=== PATIENT | male | born 1935 | race Caucasian/White ===

== ENCOUNTER 2022-04-22 15:31 | Inpatient (IN) | payer OTHER, MEDICARE ==
--- OUTSIDE RECORDS SUMMARY | 2022-04-22 15:33 | XMS REPORT | Continuity of Care Document ---
:1935 Author Organization [facility] Address [address] [place] [address] Dr. [address] [place] [address] Care Team Providers Name Role Phone Hal-Marybeth_Bella_RUSTAM Attending Clinician Unavailable Hal-Percy_RUSTAM Admitting Clinician Unavailable Payers Payer Name Policy Type Policy Number Effective Date Expiration Date S angiece [employer] [place] - [id number] 2019 [employer] 00:00:00 (MEDICARE REPLACEMENT/ADVANT AGE - HMO) Problems Condition Condition Condition Status Onset Resolution Last Treating Co mments Source Name Details Category Date Date Treatment Clinician Date Hyperchole Hyperchole Problem Active 0 [facility] sterolemia sterolemia 6-24 Fa ayush 00:00: Practic 00 e Gout Gout Problem Active 2019-0 [place] 6-24 Family 00:00: Practic 00 e Major Major Problem Active 2019-0 [facility] depressive Depressive 6-24 Fa ayush disorder Disorder 00:00: Practi c 00 e Essential Essential Problem Active 0 Dung jl hypertensi Hypertensi 6-24 Fa ayush on on 00:00: Practic 00 e Benign Benign Problem Active 2019-0 [facility] prostatic Prostatic 6-24 Fami ly hyperplasi Hyperplasi 00:00: Pr actic a a 00 e Allergies, Adverse Reactions, Alerts Allergy Allergy Status Severity Reaction(s) Onset Inactive Treating Comm ents Source Name Type Date Date Clinician PENICILL Allergy Active Moderate Rash [place] ge INS to to severe Family substanc Practic e e Social History Smoking Status Start Date Stop Date Source Never Smoker [facility] Medications Ordered Filled Start Stop Current Ordering Indication Dosage Frequency Signature Comments Components Source Medication Medication Date Date Medication? Clinician (SIG) Name Name allopurinol allopurinol No 1 Q1D allopurino [place] 300 mg 300 mg l 300 mg Family tablet Take tablet Take tablet Practic 1 tablet 1 tablet Take 1 e every day every day tablet by oral by oral every day route. route. by oral route. amlodipine amlodipine No 1 Q1D amlodipine [place] 5 mg tablet 5 mg tablet 5 mg F amily Take 1 Take 1 tablet Practic tablet tablet Take 1 e every day every day tablet by oral by oral every day route. route. by oral route. finasteride finasteride No 1 Q1D finasterid [facility] 5 mg tablet 5 mg tablet e 5 mg Family Take 1 Take 1 tablet Practic tablet tablet Take 1 e every day every day tablet by oral by oral every day route. route. by oral route. lisinopril lisinopril No 1 Q1D lisinopril [facility] 10 mg 10 mg 10 mg Family tablet Take tablet Take tablet Practic 1 tablet 1 tablet Take 1 e every day every day tablet by oral by oral every day route. route. by oral route. rosuvastati rosuvastati No 1 Q1D rosuvastat [facility] n 20 mg n 20 mg in 20 mg Famil y tablet Take tablet Take tablet Practic 1 tablet 1 tablet Take 1 e every day every day tablet by oral by oral every day route. route. by oral route. Vital Signs Vital Name Observation Time Observation Value Comments Source Height 2020-06-21 00:00:00 67 [in_i] [facility] Height 2020-03-12 00:00:00 67 [in_i] [facility] BMI (Body Mass 2020-03-12 00:00:00 31.3 kg/m2 [facility] Index) Practice Body Weight 2020-03-12 00:00:00 200 [lb_av] [facility] Procedures This patient has no known procedures. Encounters Start End Encounter Admission Attending Care Care Encounter Source Date/Time Date/Time Type Type Clinicians Facility Department ID 2020-07-16 2020-07-16 [facility]patient [facility] [id number] [facility] 01:19:00 01:19:00 _A_AH [id number] Family Practic e 2020-07-16 2020-07-16 [facility]patient [facility] [id number] [facility] 01:19:00 01:19:00 _A_AH [id number] Family Practic e 2020-06-28 2020-06-28 Outpatient [facility] [id number] [facility] 06:36:00 06:36:00 _A_AH [id number] Family Practic e 2020-06-21 2020-06-21 Sugey [facility] [place] - [id number] [facility] ill[facility] 00:00:00 00:00:00 Hal-Mbay [facility] agusto nicole, CORSETIER: Medical - Practi c [address] [email or web address]_ e [facility], [place] [address], [place] [address] , Ph. 2020-05-17 2020-05-17 Outpatient Hal-Mbayo [facility] [id number] [facility] 07:47:00 07:47:00 _A_AH [id number] Family Practic e 2020-05-01 2020-05-01 Outpatient Hal-Mbayo [facility] [id number] [facility] 03:33:00 03:33:00 _A_AH [id number] Family Practic e 2020-04-24 2020-04-24 Outpatient Hal-Mbayo [facility] [id number] [facility] 07:10:00 07:10:00 _A_AH [id number] Family Practic e 2020-04-08 2020-04-08 Outpatient Hal-Mbayo [facility] [id number] [facility] 03:38:00 03:38:00 _A_AH [id number] Family Practic e 2020-04-02 2020-04-02 Outpatient Hal-Mbayo [facility] [id number] [facility] 05:24:00 05:24:00 _A_AH [id number] Family Practic e 2020-03-15 2020-03-15 Outpatient Hal-Mbayo [facility] [id number] [facility] 07:13:00 07:13:00 _A_AH [id number] Family Practic e 2020-03-12 2020-03-12 Sugey [facility] [place] - [id number] [facility] 00:00:00 00:00:00 Ahl-Mbay [facility] agusto nicole, CORSETIER: Medical - Practi c [email or web address]@H_ e [facility], [place] [address], [place] [address] , Ph. 2019-11-08 2019-11-08 Outpatient Hal-Mbayo [facility] [id number] [facility] 07:17:00 07:17:00 _A_AH [id number] Family Practic e Results This patient has no known results.
[2022-04-22 16:32] LABS: Absolute Lymphocytes (CBC) 0.6 K/uL (0.7-4.9); Hematocrit 45.6 % (39.6-49.0); Lymphocytes % 3.5 % (15.3-44.8); MCV 90.6 fL (80-100); MPV 9.6 fL (7.6-11.3); RBC Red Blood Cell Count 5.03 M/uL (4.33-5.43)
[2022-04-22] MEDS ORDERED: CEFTRIAXONE 1000 MG/VIAL ONE (16:32)
[2022-04-22] MEDS ORDERED: NA CHLORIDE 0.9% 50 ML ONE (16:33)
[2022-04-22 16:35] LABS: Protime INR 1.25
[2022-04-22 16:49] LABS: Albumin 3.1 g/dL (3.4-5.0); Bilirubin Total 1.2 mg/dL (0.2-1.0); Potassium 3.8 mmol/L (3.5-5.1); Protein, Total 7.7 g/dL (6.4-8.2)
--- NOTE | 2022-04-22 19:21 | RAD REPORT ---
EXAM DESCRIPTION: RAD - Chest Single View - 04/22/2022 6:37 pm CLINICAL HISTORY: cough, fever COMPARISON: Two view chest 04/14/2022 TECHNIQUE: AP portable chest image was obtained 04/22/2022 6:37 pm . FINDINGS: Patient has chronic interstitial lung pattern. Markings are slightly more pronounced in th e left base. An early left base infiltrate is possible. There is no dense consolidation present. No significant failure or volume overload. Heart and vasculature are normal. No measurable pleural ef fusion and no pneumothorax. No acute bony abnormality seen. No acute aortic findings suspected. IMPRESSION: Increased interstitial markings in the left base superimposed on a diffuse chronic inter stitial lung pattern. Mild early left base pneumonia is possible.
--- NOTE | 2022-04-22 20:15 | EDPHYS ---
Physician Documentation [facility] Name: Rosales Rosales Age: 87 yrs Sex: Male : 1935 Arrival Date: 04/22/2022 Time: 15:34 Bed 19 Private MD: Lynette Raza F ED Physician Robert Arias HPI: 04/22 15:51 This 87 yrs old Male presents to ER via Ambulatory with complaints of Sinus Pain. [facility] 15:51 The patient or guardian reports cough. Onset: The symptoms/episode began/occurred jmm gradually, 2 month(s) ago. Modifying factors: The symptoms are alleviated by nothing, the symptoms are aggravated by nothing. Associated signs and symptoms: Pertinent positives: fever. The patient has not experienced similar symptoms in the past. Historical: - Allergies: 15:47 PENICILLINS; tw2 - Home Meds: 15:47 lisinopril 5 mg Oral tab 1 tab once daily [Active]; allopurinol 100 mg Oral tab 1 tab 2 tw2 times per day [Active]; "i cant rememember them" [Active]; - PMHx: 15:47 Hypertensive disorder; Gout; tw2 - Immunization history:: Client reports receiving the 2nd dose of the Covid vaccine. - Social history:: Smoking status: Patient denies any tobacco usage or history of. ROS: 15:51 Constitutional: Positive for body aches, chills. jmm 15:51 Respiratory: Positive for cough, shortness of breath. 15:51 All other systems are negative. Exam: 15:51 Head/Face: atraumatic. Eyes: EOMI, no conjunctival erythema appreciated ENT: Moist [facility] Mucus Membranes Neck: Trachea midline, Supple Chest/axilla: Normal chest wall appearance and motion. Cardiovascular: Regular rate and rhythm. No edema appreciated Abdomen/GI: Non distended 15:51 Skin: General appearance color normal MS/ Extremity: Moves all extremities, no obvious deformities appreciated, no edema noted to the lower extremities Neuro: Awake and alert Psych: Behavior is normal, Mood is normal, Patient is cooperative and pleasant 15:51 Constitutional: The patient appears in no acute distress, alert, awake. 15:51 Respiratory: mild respiratory distress is noted, Respirations: normal, Breath sounds: wheezing: is heard diffusely. Vital Signs: 14:52 Pulse Ox 95% on 2 lpm NC; tw2 15:45 BP 113 / 86; Pulse 118; Resp 22; Temp 98.9(TE); Pulse Ox 92% on R/A; Weight 84.37 kg; tw2 Height 5 ft. 7 in. (170.18 cm) (R); 17:07 BP 115 / 77; Pulse 103; Resp 18; Pulse Ox 93% on 5 lpm NC; ld1 18:30 BP 115 / 81; Pulse 93; Resp 18; Pulse Ox 90% on 5 lpm NC; ld1 23:25 BP 101 / 68; Pulse 81; Resp 20; Pulse Ox 92% on 2 lpm NC; ja4 04/23 01:41 BP 103 / 71; Pulse 74; Resp 20; Pulse Ox 92% on 2 lpm NC; ja4 05:29 BP 107 / 77; Pulse 69; Resp 22; Pulse Ox 91% on 5 lpm NC; 4 04/22 15:45 Body Mass Index 29.13 (84.37 kg, 170.18 cm) tw2 MDM: 04/22 15:51 Patient medically screened. [facility] 19:46 Data reviewed: vital signs, nurses notes. Counseling: I had a detailed discussion with josé miguel the patient and/or guardian regarding: the historical points, exam findings, and any diagnostic results supporting the discharge/admit diagnosis. 19:46 ED course: . josé miguel 20:10 ED course: Sepsis criteria met at 1641 due to leukocytosis, endorgan damage of elevated [facility] troponin. IV antibiotics were given but due to being normotensive 30 mill per kilogram fluids were not given.. 20:12 ED course: I discussed the patient with Clarence Cox that accepted the patient to Dr. josé miguel Dawkins. 20:13 Counseling: I had a detailed discussion with the patient and/or guardian regarding: lab [facility] results, radiology results, the need for further work-up and treatment in the hospital. 04/22 15:51 Order name: Blood Culture Adult (2) [facility] 04/22 15:51 Order name: CBC with Diff; Complete Time: 17:48 [facility] 04/22 15:51 Order name: CMP; Complete Time: 17:48 [facility] 04/22 15:51 Order name: Lactate; Complete Time: 17:48 [facility] 04/22 15:51 Order name: Protime (+inr); Complete Time: 17:48 [facility] 04/22 15:51 Order name: Ptt, Activated; Complete Time: 17:48 [facility] / 15:51 Order name: Urine Culture [facility] 04/22 15:51 Order name: Urine Microscopic Only [facility] 04/22 15:51 Order name: SARS-COV-2 RT PCR (Document "Date of Onset" if Symptomatic); Complete Time: [facility] 17:48 04/22 16:12 Order name: Troponin High Sensitivity; Complete Time: 17:48 [facility] 04/22 16:28 Order name: Influenza Screen (a \\T\\ B); Complete Time: 17:48 [facility] 04/22 16:45 Order name: Glucose, Ancillary Testing; Complete Time: 17:48 [facility] / 23:11 Order name: Troponin High Sensitivity [facility] 04/23 02:39 Order name: CBC with Automated Diff [facility] 04/22 15:51 Order name: Accucheck; Complete Time: 16:39 [facility] 04/22 15:51 Order name: Cardiac monitoring; Complete Time: 16:28 [facility] 04/22 15:51 Order name: EKG - Nurse/Tech; Complete Time: 16:28 [facility] 04/22 15:51 Order name: IV Saline Lock - Large Bore; Complete Time: 16:28 [facility] 04/22 15:51 Order name: Labs collected and sent; Complete Time: 16:28 [facility] 04/22 15:51 Order name: O2 Per Protocol; Complete Time: 16:28 [facility] 04/22 18:18 Order name: Chest Single View XRAY; Complete Time: 19:23 [facility] 04/23 02:57 Order name: Comprehensive Metabolic Panel [facility] 04/23 02:57 Order name: Troponin High Sensitivity [facility] 04/23 02:57 Order name: Lipid Profile [facility] 04/23 02:57 Order name: T4 Free [facility] 04/23 02:57 Order name: Thyroid Stimulating Hormone [facility] 04/23 08:39 Order name: Troponin High Sensitivity [facility] 04/22 15:51 Order name: O2 Sat Monitoring; Complete Time: 16:28 [facility] 04/22 18:31 Order name: EKG - Nurse/Tech; Complete Time: 18:44 jm Administered Medications: 16:28 Drug: Rocephin - (cefTRIAXone) 1 grams Route: IVPB; Infused Over: 30 mins; Site: right ld1 antecubital; 16:39 Follow up: Response: No adverse reaction; IV Status: Completed infusion; IV Intake: [id number] 20:41 Drug: AZITHromycin 500 mg Route: PO; bb 22:00 Follow up: Response: No adverse reaction jg9 23:36 Drug: Lovenox (enoxaparin) 1 mg/kg Route: Sub-Q; Site: abdomen; ja4 04/23 08:01 Follow up: Response: No adverse reaction jg9 Disposition Summary: 04/22/22 20:14 Hospitalization Ordered Hospitalization Status: Inpatient Admission [facility] Provider: Yasmani Carmona Condition: Stable jm Problem: new jmm Symptoms: have improved jm Bed/Room Type: Standard [facility] Location: Telemetry/MedSurg (Inpatient)(04/23/22 09:14) ja1 Room Assignment: 228(04/23/22 09:14) ja Diagnosis - Pneumonia jmm - Sepsis [facility] Forms: - Medication Reconciliation Form jmm - SBAR form [facility] Signatures: Dispatcher [employer] EDMS Robert Arias MD MD cha Mickail, Joel, PA PA [facility] Yari Rojo, RN RN bb Clarence Cox FNP-C NURSE SPECIALIST-Cla1 Mary Solorzano RN RN tw2 Lenny Calderon RN RN ja1 Sole Packer RN RN ld1 Jessie Lorenzana tw5 Gustabo Mcdonald RN RN ja4 Marian Meyer RN jg9 Corrections: (The following items were deleted from the chart) 04/22 20:12 20:10 ED course: Sepsis criteria met at 1641 due to leukocytosis, endorgan damage of jmm elevated troponin. IV antibiotics were given but due to being normotensive 30 mill per kilogram fluids were not given.. [facility] : 20:14 Telemetry/MedSurg (Inpatient) [place] [id number] 20:14 [facility] tw5 04/23 09:14 04/22 21:27 [facility] ER HOLD tw5 ja1 04/23 09:14 08 21:27 ERHOLD- [facility] ja
--- NOTE | 2022-04-22 20:15 | ER ---
Nurse's Notes [facility] Name: Rosales Rosales Age: 87 yrs Sex: Male : 1935 Arrival Date: 04/22/2022 Time: 15:34 Bed 19 Private MD: Lynette Raza F Diagnosis: Pneumonia;Sepsis Presentation: 04/22 15:45 Chief complaint: Patient states: i think i have a sinus infection for over a month. i tw2 feel so sick. i was here yesterday to get the virus test done and they didn't give me the results. my dr. sent me to get tested in the lab. i just feel like i have gotten worse. Coronavirus screen: congestion, cough unrelated to allergies, fatigue, Client presents with at least one sign or symptom that may indicate coronavirus-19. Standard/surgical mask placed on the client. Provider contacted for isolation considerations. Ebola Screen: Patient denies travel to an Ebola-affected area in the 21 days before illness onset. Initial Sepsis Screen: Does the patient meet any 2 criteria? RR > 20 per min. HR > 90 bpm. Yes Does the patient have a suspected source of infection? Yes: Productive cough/pneumonia. Risk Assessment: Do you want to hurt yourself or someone else? Patient reports no desire to harm self or others. Onset of symptoms was April 22, 2022. 15:45 Method Of Arrival: Ambulatory tw2 15:45 Acuity: YUNIOR 2 tw2 Triage Assessment: 15:48 General: Appears in no apparent distress. uncomfortable, Behavior is calm, cooperative, tw2 appropriate for age. Pain: Complains of pain in sinus pressure. EENT: Reports nasal congestion nasal discharge. Respiratory: Airway is patent Respiratory effort is even, unlabored, Respiratory pattern is regular, symmetrical. Historical: - Allergies: 15:47 PENICILLINS; tw2 - Home Meds: 15:47 lisinopril 5 mg Oral tab 1 tab once daily [Active]; allopurinol 100 mg Oral tab 1 tab 2 tw2 times per day [Active]; "i cant rememember them" [Active]; - PMHx: 15:47 Hypertensive disorder; Gout; tw2 - Immunization history:: Client reports receiving the 2nd dose of the Covid vaccine. - Social history:: Smoking status: Patient denies any tobacco usage or history of. Screenin:54 Abuse screen: Denies threats or abuse. Nutritional screening: No deficits noted. tw2 Tuberculosis screening: No symptoms or risk factors identified. Fall Risk Secondary diagnosis (15 points) impaired mobility, Ambulatory Aid- Crutches/Cane/Walker (15 pts). Assessment: 17:07 Reassessment: See triage assessment. Pt c/o sinus congestion/nasal discharge of green ld1 fluid. Notified ERP. Vital Signs: 14:52 Pulse Ox 95% on 2 lpm NC; tw2 15:45 BP 113 / 86; Pulse 118; Resp 22; Temp 98.9(TE); Pulse Ox 92% on R/A; Weight 84.37 kg; tw2 Height 5 ft. 7 in. (170.18 cm) (R); 17:07 BP 115 / 77; Pulse 103; Resp 18; Pulse Ox 93% on 5 lpm NC; ld1 18:30 BP 115 / 81; Pulse 93; Resp 18; Pulse Ox 90% on 5 lpm NC; ld1 23:25 BP 101 / 68; Pulse 81; Resp 20; Pulse Ox 92% on 2 lpm NC; ja4 04/23 01:41 BP 103 / 71; Pulse 74; Resp 20; Pulse Ox 92% on 2 lpm NC; ja4 05:29 BP 107 / 77; Pulse 69; Resp 22; Pulse Ox 91% on 5 lpm NC; ja4 04/22 15:45 Body Mass Index 29.13 (84.37 kg, 170.18 cm) tw2 ED Course: 04/22 15:34 Patient arrived in ED. rg4 15:34 Lynette Raza MD is Private Physician. rg4 15:47 Triage completed. tw2 15:48 Arm band placed on. tw2 15:50 Alexey Abad PA is PHCP. [facility] 15:50 Robert Arias MD is Attending Physician. jm 15:53 Sole Packer, NANCY is Primary Nurse. ld1 15:55 Bed in low position. Call light in reach. Side rails up X 1. Pulse ox on. NIBP on. tw2 16:28 SARS-COV-2 RT PCR (Document "Date of Onset" if Symptomatic) Sent. ld1 16:28 Inserted saline lock: 20 gauge in right antecubital area, using aseptic technique. ld1 Blood collected. 16:39 Troponin High Sensitivity Sent. ld1 17:08 No provider procedures requiring assistance completed. ld1 18:39 Chest Single View XRAY In Process Unspecified. EDMS 20:13 Yasmani Carmona MD is Hospitalizing Provider. [facility] 04/23 03:14 Primary Nurse role handed off by Sole Packer, RN ja 03:14 Gustabo Mcdonald, RN is Primary Nurse. [facility] 08:00 Patient admitted, IV remains in place. jg9 Administered Medications: 04/22 16:28 Drug: Rocephin - (cefTRIAXone) 1 grams Route: IVPB; Infused Over: 30 mins; Site: right ld1 antecubital; 16:39 Follow up: Response: No adverse reaction; IV Status: Completed infusion; IV Intake: [id number] 20:41 Drug: AZITHromycin 500 mg Route: PO; 22:00 Follow up: Response: No adverse reaction jg9 23:36 Drug: Lovenox (enoxaparin) 1 mg/kg Route: Sub-Q; Site: abdomen; [facility] 04/23 08:01 Follow up: Response: No adverse reaction jg9 Medication: 04/22 15:55 VIS not applicable for this client. tw2 Intake: 16:39 IV: 50ml; Total: 50ml. ld1 Outcome: 20:14 Decision to Hospitalize by Provider. [facility] 04/23 08:00 Admitted to ER Hold. Please see [facility] for further documentation. jg9 Condition: stable 11:13 Patient left the ED. jg9 Signatures: Dispatcher [employer] EDMS Alexey Abad PA PA [facility] Yari Rojo, RN RN bb Mary Solorzano, RN RN tw2 Lay Seymour rg4 Sole Packer, RN RN ld1 Marian Meyer RN RN jg9 Gustabo Mcdonald, NANCY RN ja4 Corrections: (The following items were deleted from the chart) 04/22 15:49 15:45 Initial Sepsis Screen: Does the patient meet any 2 criteria? HR > 90 bpm. No. tw2 Patient's initial sepsis screen is negative. Does the patient have a suspected source of infection? No. Patient's initial sepsis screen is negative. tw2
[2022-04-22] MEDS ORDERED: AZITHROMYCIN 250 MG TAB ONE (20:34)
--- NOTE | 2022-04-22 21:25 | P.HP ---
Certification for Inpatient Patient admitted to: Inpatient With expected LOS: >2 Midnights Patient will require the following post-hospital care: None Practitioner: I am a practitioner with admitting privileges, knowledge of patient current condition, hospital course, and medical plan of care. Services: Services provided to patient in accordance with Admission requirements found in Title 42 Section 412.3 of the Code of Federal Regulations Patient History Date of Service: 04/22/22 Primary Care Provider: Dr. Narayan unavailable Reason for admission: Sepsis, pneumonia History of Present Illness: 87-year-old male with history of hypertension and gout presents to the emergency department for shortness of breath, cough and feeling unwell over the course of the last couple of days. He does report a cough for the last 1 month or so. He was evaluated in the emergency department he met criteria for sepsis given leuk ocytosis, tachycardia, tachypnea and positive source of infection his chest x- ray revealed left lung base pneumonia. Patient was started on antibiotics including Rocephin/Zithromax his other labs included a mildly elevated high- sensitivity troponin 98.8, renal insufficiency with a creatinine of 1.34. Will admit for further evaluation and management of sepsis, pneumonia - Past Medical/Surgical History -: Hypertensionnot on any meds -: Gout -: None Psychosocial/ Personal History: Patient lives at home, alone and is retired - Family History Family History: Reviewed- Non-Contributory - Social History Smoking Status: Never smoker Alcohol use: No CD- Drugs: No Caffeine use: Yes Place of Residence: Home Review of Systems 10-point ROS is otherwise unremarkable General: Weakness, Malaise Respiratory: Cough, Shortness of Breath, SOB with Excertion Physical Examination - Physical Exam General: Alert, In no apparent distress, Oriented x3 HEENT: Atraumatic, PERRLA, Mucous membr. moist/pink, EOMI, Sclerae nonicteric Neck: Supple, 2+ carotid pulse no bruit, No LAD, Without JVD or thyroid abnormality Respiratory: Clear to auscultation bilaterally, Normal air movement Cardiovascular: Regular rate/rhythm, Normal S1 S2, Systolic murmur Gastrointestinal: Normal bowel sounds, No tenderness Musculoskeletal: No tenderness Integumentary: No rashes Neurological: Normal gait, Normal speech, Normal strength at 5/5 x4 extr, Normal tone, Normal affect Lymphatics: No axilla or inguinal lymphadenopathy - Studies Laboratory Data (last 24 hrs) 04/22/22 16:18: PT 13.8 H, INR 1.25, APTT 32.1 04/22/22 16:18: Sodium 135 L, Potassium 3.8, BUN 25 H, Creatinine 1.34 H, Glucose 173 H, Total Bilirubin 1.2 H, AST 19, ALT 11 L, Alkaline Phosphatase 74 04/22/22 16:18: WBC 18.0 H, Hgb 14.9, Hct 45.6, Plt Count 134 L Microbiology Data (last 24 hrs): 04/22/22 16:32 Nasopharnyx Influenza Type A Antigen Screen - Final 04/22/22 16:32 Nasopharnyx Influenza Type B Antigen Screen - Final Assessment and Plan - Plan Assessment: Sepsis secondary to left lower lobe pneumonia Elevated troponin suspect demand ischemia related to sepsis Hypertension Gout Acute kidney injury related to sepsis Plan: Sepsis secondary to left lower lobe pneumonia: Blood cultures obtained no hypotension or lactate greater than 4 does not criteria for IV fluid bolus continue antibiotics, incentive spirometry. Supplemental oxygen as needed. Elevated troponin suspect demand ischemia related to sepsis: Denies any chest pain, will obtain echocardiogram as patient also has a murmur that he is unsure of is new or not. Cardiology consult in place. Hypertension: Not currently on any medications at home we will continue monitor blood pressure throughout hospitalization provide medication as needed. Gout: Continue medications once verified Acute kidney injury related to sepsis: We will provide IV fluids overnight, monitor kidney function daily consult nephrology as necessary for worsening. DVT PPX: Lovenox Code status: Full Discharge Plan: Home Plan to discharge in: 48 Hours - Advance Directives Does patient have a Living Will: No Does patient have a Durable POA for Healthcare: No - Code Status/Comfort Care Code Status Assessed: Yes (Full code) Critical Care: No Time Spent Managing Pts Care (In Minutes): 70
[2022-04-22] MEDS ORDERED: ATORVASTATIN 40 MG TAB PO SCH (22:10)
[2022-04-22] MEDS: NA CHLORIDE 0.9% 1,000 ML IV SCH (22:10)
[2022-04-22] MEDS ORDERED: HEPARIN 5000 UNIT/ML 1 ML VIAL SQ SCH (22:10)
[2022-04-22] MEDS ORDERED: ONDANSETRON 4 MG/2 ML VIAL IV PRN (22:10)
[2022-04-22] MEDS ORDERED: ALBUTEROL 2.5 MG/3 ML NEB SOL NEB PRN (22:10)
[2022-04-22] MEDS ORDERED: ACETAMINOPHEN 500 MG TAB PO PRN (22:10)
[2022-04-22] MEDS ORDERED: NA CHLORIDE 0.9% 1,000 ML ONE (22:56)
[2022-04-22] MEDS ORDERED: ATORVASTATIN 20 MG TAB ONE (22:56)
[2022-04-22] MEDS ORDERED: HEPARIN 5000 UNIT/ML 1 ML VIAL ONE (22:56)
[2022-04-22] MEDS ORDERED: ENOXAPARIN 80 MG/0.8 ML SQ ONE (23:40)
[2022-04-22] MEDS: ATORVASTATIN 10 MG TAB PO SCH (23:45)
[2022-04-23 00:10] VITALS: BMI 29.1
[2022-04-23 02:32] LABS: Absolute Lymphocytes (CBC) 1.1 K/uL (0.7-4.9); Hematocrit 40.4 % (39.6-49.0); Lymphocytes % 7.1 % (15.3-44.8); MCV 90.5 fL (80-100); MPV 9.8 fL (7.6-11.3); RBC Red Blood Cell Count 4.46 M/uL (4.33-5.43)
[2022-04-23 02:51] LABS: Albumin 2.7 g/dL (3.4-5.0); Bilirubin Total 1.1 mg/dL (0.2-1.0); Protein, Total 6.7 g/dL (6.4-8.2); Thyroid Stimulating Hormone 1.41 uIU/mL (0.360-3.740)
[2022-04-23 02:57] LABS: Troponin High Sensitivity 693.6 pg/mL (<58.9)
[2022-04-23] MEDS: BENZONATATE 100 MG CAP PO PRN ×4 (04:19→22:46)
[2022-04-23] MEDS ORDERED: BENZONATATE 100 MG CAP PO ONE ×2 (04:20→09:47)
--- NOTE | 2022-04-23 06:37 | P.PN ---
Date of Service: 04/23/22 Subjective: feels better this monring; no chest pain breathing slightly improved ROS: as noted above, otherwise 10 point ROS negative Physical Exam General: AOx3, NAD Pulm: diminished at left base, mild crackles CV: Regular rate/rhythm, Normal S1 S2, Systolic murmur Abd: Normal bowel sounds, No tenderness MSK: No tenderness, no contractures Neuro: Normal speech, Normal strength at 5/5 x4 extr, Normal affect Problem List Sepsis secondary to left lower lobe pneumonia Elevated troponin suspect demand ischemia related to sepsis Hypertension Gout Acute kidney injury related to sepsis chronic interstitial lung fibroemphysematous changes sepsis secondary to left lower lobe pneumonia: leukocytosis improving, continue rocephin/azithro NSTEMI - suspect demand ischemia, in setting of pneumonia / sepsis, denies chest pain cardiology consulted, echo ordered confirm home medications, restart as appropriate VITO, prerenal, decreased intake, sepsis, improved with IVF chronic lung changes noted on x-ray, with suspected left lower lobe pneumonia, pulm consulted VTE: Lovenox Code: full dispo: home, ~1-2 days Time Spent Managing Pts Care (In Minutes): 35
[2022-04-23] MEDS: ENOXAPARIN 80 MG/0.8 ML SQ SCH ×2 (09:00→22:48)
[2022-04-23] MEDS: ASPIRIN EC 81 MG TAB PO SCH (09:00)
[2022-04-23] MEDS ORDERED: ENOXAPARIN 80 MG/0.8 ML SQ ONE (09:47)
[2022-04-23] MEDS ORDERED: ASPIRIN EC 81 MG TAB PO ONE (09:48)
--- NOTE | 2022-04-23 11:15 | ECHO ---
HEIGHT: 5 ft 7 in WEIGHT: 186 lb 0 oz DATE OF STUDY: 04/23/[address]: Clarence Cox NP 2-DIMENSIONAL: YES M.MODE: YES DOPPLER: YES COLOR FLOW: YES TDS: PORTABLE: YES DEFINITY: BUBBLE STUDY: DIAGNOSIS: ELEVATED TROPONIN, MURMUR CARDIAC HISTORY: CATHERIZATION: NO SURGERY: NO PROSTHETIC VALVE: NO PACEMAKER: NO MEASUREMENTS (cm) DIASTOLIC (NORMALS) SYSTOLIC (NORMALS) IVSd 1.3 (0.6-1.2) LA Diam 2.7 (1.9-4.0) LVEF 56% LVIDd 4.7 (3.5-5.7) LVIDs 3.3 (2.0-3.5) %FS 29% LVPWd 1.3 (0.6-1.2) Ao Diam 2.3 (2.0-3.7) 2 DIMENSIONAL ASSESSMENT: RIGHT ATRIUM: NORMAL LEFT ATRIUM: NORMAL RIGHT VENTRICLE: NORMAL LEFT VENTRICLE: LEFT VENTRICULAR HYPERTROPHY TRICUSPID VALVE: NORMAL MITRAL VALVE: NORMAL PULMONIC VALVE: NORMAL AORTIC VALVE: NORMAL PERICARDIAL EFFUSION: NONE AORTIC ROOT: NORMAL LEFT VENTRICULAR WALL MOTION: NORMAL DOPPLER/COLOR FLOW: NORMAL COMMENTS: NORMAL LEFT VENTRICULAR FUNCTION. LEFT VENTRICULAR HYPERTRROPHY. NO WALL MOTION ABNORMALITY. NO EFFUSION. TECHNOLOGIST: MI LOTT
[2022-04-23] MEDS: NA CHLORIDE 0.9% 1,000 ML IV SCH ×2 (11:40→22:48)
[2022-04-23] MEDS ORDERED: CEFTRIAXONE 1,000 MG in NA CHLORIDE 0.9% 50 ML IVPB SCH (16:00)
[2022-04-23] MEDS ORDERED: AZITHROMYCIN IV 500 MG in NA CHLORIDE 0.9% 250 ML IVPB SCH (20:00)
[2022-04-23] MEDS ORDERED: BISACODYL E.C. 5 MG TAB PO PRN (21:35)
[2022-04-23] MEDS: MELATONIN 5 MG TABLET PO PRN (22:46)
[2022-04-23] MEDS: ATORVASTATIN 10 MG TAB PO SCH (22:47)
[2022-04-24] MEDS: BENZONATATE 100 MG CAP PO PRN (03:26)
[2022-04-24 06:06] LABS: Hematocrit 36.2 % (39.6-49.0); Lymphocytes % 10.9 % (15.3-44.8); MCV 91.5 fL (80-100); MPV 10.5 fL (7.6-11.3); RBC Red Blood Cell Count 3.96 M/uL (4.33-5.43)
[2022-04-24 06:19] LABS: Albumin 2.2 g/dL (3.4-5.0); Bilirubin Total 0.7 mg/dL (0.2-1.0); Potassium 3.8 mmol/L (3.5-5.1); Protein, Total 5.8 g/dL (6.4-8.2)
--- NOTE | 2022-04-24 08:29 | RAD REPORT ---
EXAM DESCRIPTION: RAD - Chest Single View - 04/24/2022 8:00 am CLINICAL HISTORY: f/u opacities/pneumonia Chest pain. COMPARISON: Chest Single View dated 04/22/2022; Chest Pa And Lat (2 Views) dated 04/14/2022; Abdomen 1 View (KUB) dated 02/16/2017; Chest Pa And Lat (2 Views) dated 09/09/2016 FINDINGS: Portable technique limits examination quality. Since 04/22/2022, little overall change is seen in the bilateral mild pulmonary opacities, greater on the left. The heart is normal in size. No displaced fractures. IMPRESSION: Stable chest since 04/22/2022.
[2022-04-24] MEDS: NA CHLORIDE 0.9% 1,000 ML IV SCH (09:31)
[2022-04-24] MEDS: DOCUSATE NA 100 MG CAP PO SCH ×2 (09:31→09:38)
[2022-04-24] MEDS: ASPIRIN EC 81 MG TAB PO SCH (09:32)
[2022-04-24] MEDS: ENOXAPARIN 80 MG/0.8 ML SQ SCH (09:38)
--- NOTE | 2022-04-24 10:54 | P.CNS ---
Date of Consult: 04/24/22 Primary Care Provider: Dr. Razacurrently unavailable Chief Complaint: Sepsis, pneumonia History of Present Illness: Patient is 87 years of age with a history of hypertension gout presents with shortness of breath and coughing past few days has been coughing for a month admitted with a diagnosis of possible left lung pneumonia treated with IV antibiotics/cardiopulmonary problems is been progressive over the past 2 months was treated with Z-Kendell by Dr. Raza no relief he has been wheezing he has been here for the past few days Allergies Penicillins Allergy (Verified 04/22/22 22:09) Itching/Hives/Rash Home Medications: Allopurinol 1 tab PO DAILY 04/23/22 Amlodipine [Norvasc*] 1 tab PO DAILY 04/23/22 Finasteride 1 tab PO DAILY 04/23/22 Lisinopril [Zestril] 1 tab PO DAILY 04/23/22 Rosuvastatin Calcium 1 tab PO DAILY 04/23/22 Tamsulosin [Flomax*] 1 cap PO DAILY 04/23/22 - Past Medical/Surgical History -: Hypertensionnot on any meds -: Gout -: None Psychosocial/ Personal History: Patient lives at home, alone and is retired - Social History Alcohol use: No CD- Drugs: No Caffeine use: Yes Place of Residence: Home Review of Systems General: Weakness Respiratory: Cough, Shortness of Breath Physical Examination Temp Pulse Resp BP Pulse Ox 98.2 F 64 16 105/62 89 L 04/24/22 08:00 04/24/22 08:00 04/24/22 08:00 04/24/22 08:00 04/24/22 08:00 General: Alert, In no apparent distress, Oriented x3, Mild distress Respiratory: Expiratory wheezes Cardiovascular: No edema, Regular rate/rhythm, Normal S1 S2 Gastrointestinal: Normal bowel sounds, Soft and benign - Problems (1) Wheezing Current Visit: Yes Status: Acute Plan: Patient is 87 years of age has been sick for the past 2 months has been complaining of weakness coughing postnasal drainage sinus congestion shortness of breath he has never had any cardiopulmonary problems before is never smoked he has significant wheezing high sensitive troponins are elevated renal function is normal white count has been declining no evidence of consolidation echocardiogram shows normal left ventricular function patient denies any chest pains most likely he has demand ischemia seen by cardiology added levofloxacin p.o. high-dose steroids bronchodilators hypoxic evaluate for discharge possibly tomorrow
[2022-04-24] MEDS: IPRATROPIUM BROM 0.5MG/2.5ML NEB SCH ×3 (11:11→20:00)
[2022-04-24] MEDS: ALBUTEROL 2.5 MG/3 ML NEB SOL IH SCH ×3 (11:11→20:00)
[2022-04-24] MEDS: levoFLOXacin 500 MG TAB PO SCH (11:29)
[2022-04-24] MEDS: METHYLPREDNISOLONE 125 MG INJ IV SCH ×2 (11:30→20:38)
[2022-04-24] MEDS ORDERED: DOCUSATE NA/SENNA CONC 1 TAB PO PRN (14:03)
--- NOTE | 2022-04-24 14:48 | CON ---
Date of Consultation: 04/23/2022 Reason For Consultation: Heart murmur, pneumonia, sepsis, and elevated troponin. History Of Present Illness: Mr. Rosales is an 87, has a history of hypertension and gout, came in with s epsis, pneumonia, was noted to have a heart murmur by examination. His main complaint was sinus pain . Denied any nausea, vomiting, diaphoresis, PND, orthopnea, pedal edema, palpitation, or syncope. H as had some nausea, diaphoresis, and shortness of breath. Troponin was 693. EKG was unremarkable. Chest x-ray showed pneumonia. [place] 1[place] [address] and glucose is 173. Past Medical History: Include hypertension and gout. Allergies: HE IS ALLERGIC TO PENICILLIN. Review of Systems: Negative. Social History: Negative. Family History: Negative. Medications: Listed by Dr. Carmona. Physical Examination: General: He appeared his stated age. Vital signs: Stable, afebrile. He is in a sinus rhythm. HEENT: Negative. Neck: Supple with no bruit. Chest: Revealed crackles at bases, more on the right than the left. Cardiac exam: Revealed a regular rhythm and rate with S4 gallop and what sounds like an aortic scler osis murmur. Abdomen: Benign. Extremities: Revealed no clubbing, cyanosis. Trace edema. Diagnostic Data: As stated earlier. Impression And Plan: 1.Elevated troponin secondary to demand ischemia, sepsis, and pneumonia. 2.Heart murmur, possibly aortic valve stenosis or sclerosis. Echocardiogram is pending. 3.Pneumonia. 4.Renal insufficiency. 5.Glucose intolerance. 6.Hypertension. 7.Gout. I agree with present regimen. We will get an echocardiogram to see if there is anything on his heart valve that we will need to be concerned about. His troponin elevation is not concerning, but we will look for wall motion. We pal l continue to follow. NB/MODL Voice ID: [id number] Report ID: [id number]
--- NOTE | 2022-04-24 15:11 | EKG ---
Test Date: 2022-04-22 Test Time: 18:40:29 Cotton Picker: JENNA MEASUREMENT RESULTS: Intervals: Rate: 92 OH: 202 QRSD: 154 QT: 410 QTc: 507 [place]: P: 31 OH: 202 QRS: -48 T: 118 INTERPRETIVE STATEMENTS: Normal sinus rhythm Left axis deviation Left ventricular hypertrophy with QRS widening and repolarization abnormality Abnormal ECG Compared to ECG 04/22/2022 16:04:29 Sinus tachycardia no longer present Electronically Signed On 04-24-22 15:08:45 CDT by Willian Cummins
--- NOTE | 2022-04-24 15:12 | EKG ---
Test Date: 2022-04-22 Test Time: 16:04:29 Obedience Trainer: JENNA MEASUREMENT RESULTS: Intervals: Rate: 111 MT: 144 QRSD: 150 QT: 368 QTc: 500 [place]: P: -12 MT: 144 QRS: -42 T: 118 INTERPRETIVE STATEMENTS: Sinus tachycardia Left axis deviation Left ventricular hypertrophy with QRS widening and repolarization abnormality Abnormal ECG Compared to ECG 01/27/2006 07:27:52 Left-axis deviation now present Left ventricular hypertrophy now present Early repolarization now present Sinus rhythm no longer present Myocardial infarct finding no longer present Electronically Signed On 04-24-22 15:09:17 CDT by Willian Cummins
[2022-04-24] MEDS ORDERED: AZITHROMYCIN 250 MG TAB PO SCH (18:00)
--- NOTE | 2022-04-24 19:33 | P.PN ---
Date of Service: 04/24/22 Subjective: improving more productive cough, slight wheeze ROS: as noted above, otherwise 10 point ROS negative Physical Exam Gen: AOx3, NAD Pulm: diminished at left base, mild wheeze, +cough CV: Regular rate/rhythm, Normal S1 S2, Systolic murmur Abd: soft, nontender, nondistended MSK: No tenderness, no contractures Neuro: Normal speech, Normal strength at 5/5 x4 extr, Normal affect Problem List Sepsis secondary to left lower lobe pneumonia Elevated troponin suspect demand ischemia related to sepsis Hypertension Gout Acute kidney injury related to sepsis chronic interstitial lung fibroemphysematous changes sepsis secondary to left lower lobe pneumonia: leukocytosis improving, continue rocephin/azithro NSTEMI - suspect demand ischemia, in setting of pneumonia / sepsis, denies chest pain cardiology consulted, echo normal, do not suspect ACS continue home meds VITO, prerenal, decreased intake, sepsis, improved with IVF chronic lung changes noted on x-ray, with suspected left lower lobe pneumonia, pulm consulted steroids added, nebs wean O2 VTE: Lovenox Code: full dispo: home, possibly tomorrow, wean O2 Time Spent Managing Pts Care (In Minutes): 35
[2022-04-24] MEDS: ATORVASTATIN 10 MG TAB PO SCH (20:37)
[2022-04-24] MEDS: GUAIFENESIN 600 MG SA TAB PO SCH (20:38)
[2022-04-25] MEDS: BENZONATATE 100 MG CAP PO PRN (00:13)
[2022-04-25] MEDS ORDERED: HYDROCODONE/CHLORPHEN 5 ML/OSYR PO ONE (01:07)
[2022-04-25] MEDS: MELATONIN 5 MG TABLET PO PRN (01:26)
--- NOTE | 2022-04-25 01:38 | PN ---
Date of Progress Note: 04/24/2022 Mr. Rosales came in with pneumonia, sepsis, elevated troponin, a heart murmur, renal insufficiency, gluco se intolerance, and hypertension. He has a history of gout. He is feeling better with the present r egimen. Echocardiogram was normal without any significant aortic valve stenosis or insufficiency. H e had some tricuspid regurgitation, otherwise normal ejection fraction. No wall motion abnormalities . Again, I believe that his troponin elevation is secondary to demand ischemia from sepsis and pneum onia and renal insufficiency. No need for any further cardiac workup. The patient can go home on hi s present regimen whenever it is okay with admitting physician. YANICK/JOEL Voice ID: [id number] Report ID: [id number]
[2022-04-25] MEDS: ALBUTEROL 2.5 MG/3 ML NEB SOL IH SCH ×4 (01:45→20:40)
[2022-04-25] MEDS: IPRATROPIUM BROM 0.5MG/2.5ML NEB SCH ×4 (01:45→20:40)
[2022-04-25 06:18] LABS: Absolute Lymphocytes (CBC) 0.5 K/uL (0.7-4.9); Hematocrit 36.6 % (39.6-49.0); Lymphocytes % 6.7 % (15.3-44.8); MCV 90.2 fL (80-100); MPV 9.5 fL (7.6-11.3); RBC Red Blood Cell Count 4.05 M/uL (4.33-5.43)
[2022-04-25 06:39] LABS: Albumin 2.2 g/dL (3.4-5.0); Bilirubin Total 0.4 mg/dL (0.2-1.0); Protein, Total 6.1 g/dL (6.4-8.2)
[2022-04-25] MEDS: levoFLOXacin 500 MG TAB PO SCH (08:08)
[2022-04-25] MEDS: DOCUSATE NA 100 MG CAP PO SCH ×2 (08:08→22:03)
[2022-04-25] MEDS: ASPIRIN EC 81 MG TAB PO SCH (08:08)
[2022-04-25] MEDS: METHYLPREDNISOLONE 125 MG INJ IV SCH ×2 (08:08→22:04)
[2022-04-25] MEDS: GUAIFENESIN 600 MG SA TAB PO SCH ×2 (08:08→22:03)
[2022-04-25] MEDS: POLYETHYL GLY 3350 17 GM/DOSE PO PRN (11:23)
--- NOTE | 2022-04-25 14:38 | RAD REPORT ---
EXAM DESCRIPTION: RAD - Chest Single View - 04/25/2022 2:21 pm CLINICAL HISTORY: f/u opacities Chest pain. COMPARISON: Chest Single View dated 04/24/2022; Chest Single View dated 04/22/2022; Chest Pa And Lat (2 Views) dated 04/14/2022; Abdomen 1 View (KUB) dated 02/16/2017 FINDINGS: Portable technique limits examination quality. Mild bilateral pulmonary opacities show no real change since yesterday's study. The heart is mildly e nlarged in size. No displaced fractures. IMPRESSION: Stable chest since yesterday's examination.
--- NOTE | 2022-04-25 16:47 | P.PN ---
Date of Service: 04/25/22 Subjective: improving feels better cough less productive on room air overnight ROS: as noted above, otherwise 10 point ROS negative Physical Exam Gen: AOx3, NAD Pulm: diminished bilaterally, mild wheeze, +cough CV: Regular rate/rhythm, Normal S1 S2, +Systolic murmur Abd: soft, nontender, nondistended Neuro: Normal speech, Normal strength at 5/5 x4 extr, Normal affect Problem List Sepsis secondary to left lower lobe pneumonia Elevated troponin suspect demand ischemia related to sepsis Hypertension Gout Acute kidney injury related to sepsis chronic interstitial lung fibroemphysematous changes sepsis secondary to left lower lobe pneumonia: leukocytosis resolved Rocephin/azithromycin changed to Levaquin per pulmonology recommendations NSTEMI - suspect demand ischemia, in setting of pneumonia / sepsis, denies chest pain cardiology consulted, echo normal, do not suspect ACS continue home meds VITO, prerenal, secondary to decreased intake, sepsis, improved with IVF chronic lung changes noted on x-ray, with suspected left lower lobe pneumonia, pulm consulted steroids added, nebs weaned to room air last night,, was getting set up for discharge when SpO2 was checked and 85% patient placed back on O2 wean as tolerated VTE: Lovenox Code: full dispo: home, possibly tomorrow, wean O2 Time Spent Managing Pts Care (In Minutes): 35
[2022-04-25] MEDS ORDERED: GUAIFENESIN/CODEINE 5ML UCUP PO PRN (16:48)
[2022-04-25] MEDS: ATORVASTATIN 10 MG TAB PO SCH (22:03)
[2022-04-26] MEDS: ALBUTEROL 2.5 MG/3 ML NEB SOL IH SCH ×3 (01:10→14:00)
[2022-04-26] MEDS: IPRATROPIUM BROM 0.5MG/2.5ML NEB SCH ×3 (01:10→14:00)
--- NOTE | 2022-04-26 06:22 | P.PN ---
Date of Service: 04/26/22 Subjective: ROS: as noted above, otherwise 10 point ROS negative Physical Exam Gen: AOx3, NAD Pulm: diminished bilaterally, mild wheeze, +cough CV: Regular rate/rhythm, Normal S1 S2, +Systolic murmur Abd: soft, nontender, nondistended Neuro: Normal speech, Normal strength at 5/5 x4 extr, Normal affect Problem List Sepsis secondary to left lower lobe pneumonia Elevated troponin suspect demand ischemia related to sepsis Hypertension Gout Acute kidney injury related to sepsis chronic interstitial lung fibroemphysematous changes sepsis secondary to left lower lobe pneumonia: leukocytosis resolved Rocephin/azithromycin changed to Levaquin per pulmonology recommendations NSTEMI - suspect demand ischemia, in setting of pneumonia / sepsis, denies chest pain cardiology consulted, echo normal, do not suspect ACS continue home meds VITO, prerenal, secondary to decreased intake, sepsis, improved with IVF chronic lung changes noted on x-ray, with suspected left lower lobe pneumonia, pulm consulted steroids added, nebs weaned to room air last night,, was getting set up for discharge when SpO2 was checked and 85% patient placed back on O2 wean as tolerated VTE: Lovenox Code: full dispo: home, possibly tomorrow, wean O2 Time Spent Managing Pts Care (In Minutes): 35
[2022-04-26 09:03] VITALS: O2SAT 94
[2022-04-26] MEDS: GUAIFENESIN 600 MG SA TAB PO SCH (09:08)
[2022-04-26] MEDS: ASPIRIN EC 81 MG TAB PO SCH (09:08)
[2022-04-26] MEDS: DOCUSATE NA 100 MG CAP PO SCH (09:08)
[2022-04-26] MEDS: METHYLPREDNISOLONE 125 MG INJ IV SCH (09:08)
[2022-04-26] MEDS: levoFLOXacin 500 MG TAB PO SCH (09:08)
[2022-04-26] MEDS: POLYETHYL GLY 3350 17 GM/DOSE PO PRN (09:15)
--- NOTE | 2022-04-26 14:31 | P.DS ---
Admission Date: 04/22/22 Discharge Date: 04/26/22 Primary Care Provider: Dr. Narayan unavailable Disposition: ROUTINE DISCHARGE Discharge Condition: GOOD Reason for Admission: Sepsis, pneumonia Consultations: Pulmonology - Dr. Urbina Cardiology - Dr. Kate Brief History of Present Illness: 87yo M, PMH: HTN, Gout Presented to ED due to SOB, cough, and feeling unwell over the last few days. Reports a cough x1 month. In the ED, noted to have leukocytosis, tachycardia, tachypnea with chest x-ray concerning for left lung base pneumonia, meeting sepsis criteria. He is empirically started on IV antibiotics (Rocephin/azithromycin). Hospital Course: Problem List Sepsis secondary to left lower lobe pneumonia Elevated troponin secondary to demand ischemia related to sepsis Hypertension Gout VITO related to decreased PO intake, resolved chronic interstitial lung fibroemphysematous changes noted on chest x-ray Patient was treated for pneumonia with antibiotics and had improvement. He initially required oxygen supplementation, but this was weaned off. Patient was noted to be wheezing, and may be having a component of COPD (no formal diagnosis). Pulmonology was consulted and patient was started on steroids as well. His troponin was noted to be mildly elevated and then improved. Cardiology was consulted, echo was normal, and felt this was due to demand ischemia. No further intervention needed. Patient was deemed stable for discharge home with antibiotic and prednisone Echocardiogram (04/23): LV hypertrophy, normal LV function, no wall motion abnormality. No effusion. follow up: PCP: within 1 week Pulmonology: ~2 weeks Cardiology: 3-4 weeks Vital Signs/Physical Exam: Temp Pulse Resp BP Pulse Ox 97.0 F 60 26 H 133/74 91 04/26/22 08:00 04/26/22 08:00 04/26/22 08:00 04/26/22 08:00 04/26/22 08:00 Physical Exam Gen: AOx3, NAD Pulm: diminished bilaterally, mild wheeze, +cough CV: Regular rate/rhythm, Normal S1 S2, +Systolic murmur Abd: soft, nontender, nondistended Neuro: Normal speech, Normal strength at 5/5 x4 extr, Normal affect Laboratory Data at Discharge: WBC 7.9 K/uL (4.3-10.9) 04/25/22 05:41 Hgb 12.6 g/dL (13.6-17.9) L 04/25/22 05:41 Hct 36.6 % (39.6-49.0) L 04/25/22 05:41 Plt Count 117 K/uL (152-406) L 04/25/22 05:41 PT 13.8 SECONDS (9.5-12.5) H 04/22/22 16:18 INR 1.25 04/22/22 16:18 APTT 32.1 SECONDS (24.3-36.9) 04/22/22 16:18 Sodium 138 mmol/L (136-145) 04/25/22 05:41 Potassium 4.0 mmol/L (3.5-5.1) 04/25/22 05:41 BUN 23 mg/dL (7-18) H 04/25/22 05:41 Creatinine 0.85 mg/dL (0.55-1.3) 04/25/22 05:41 Glucose 176 mg/dL (74-106) H 04/25/22 05:41 Total Bilirubin 0.4 mg/dL (0.2-1.0) 04/25/22 05:41 AST 32 U/L (15-37) 04/25/22 05:41 ALT 24 U/L (12-78) 04/25/22 05:41 Alkaline Phosphatase 61 U/L (45-117) 04/25/22 05:41 Triglycerides 65 mg/dL (<150) 04/23/22 02:03 Cholesterol 110 mg/dL (<200) 04/23/22 02:03 HDL Cholesterol 55 mg/dL (40-60) 04/23/22 02:03 Cholesterol/HDL Ratio 2.00 04/23/22 02:03 Home Medications: Allopurinol 1 tab PO DAILY 04/23/22 Amlodipine [Norvasc*] 1 tab PO DAILY 04/23/22 Finasteride 1 tab PO DAILY 04/23/22 Lisinopril [Zestril] 1 tab PO DAILY 04/23/22 Rosuvastatin Calcium 1 tab PO DAILY 04/23/22 Tamsulosin [Flomax*] 1 cap PO DAILY 04/23/22 Codeine Phosphate/Guaifenesin [Guaifen-Codeine 100-10 mg/5 ml] 5 ml PO Q6H PRN 5 Days #100 ml 04/25/22 levoFLOXacin [Levaquin*] 500 mg PO DAILY 7 Days #7 tab 04/25/22 predniSONE [Prednisone] 20 mg PO SEECOM 7 Days #11 tab 04/25/22 Albuterol Inhaler [Ventolin Inhaler*] 2 puff IH Q6H PRN #1 inh 04/26/22 New Medications: Codeine Phosphate/Guaifenesin [Guaifen-Codeine 100-10 mg/5 ml] 5 ml PO Q6H PRN 5 Days #100 ml PRN Reason: Cough levoFLOXacin [Levaquin*] 500 mg PO DAILY 7 Days #7 tab predniSONE [Prednisone] 20 mg PO SEECOM 7 Days #11 tab Albuterol Inhaler [Ventolin Inhaler*] 2 puff IH Q6H PRN #1 inh PRN Reason: Shortness Of Breath Physician Discharge Instructions: Patient was treated for pneumonia with antibiotics and had improvement. He initially required oxygen supplementation, but this was weaned off. Patient was noted to be wheezing, and may be having a component of COPD (no formal diagnosis). Pulmonology was consulted and patient was started on steroids as well. His troponin was noted to be mildly elevated and then improved. Cardiology was consulted, echo was normal, and felt this was due to demand ischemia. No further intervention needed. Patient was deemed stable for discharge home with antibiotic and prednisone follow up: PCP: within 1 week Pulmonology: ~2 weeks Cardiology: 3-4 weeks Followup: Lynette Raza MD [Primary Care Provider] - (Call to schedule appointment.) Time spent managing pt's care (in minutes): 45
[2022-04-26 14:32] VITALS: BP 142/75; TEMP 97.1
== END 2022-04-26 16:01 | disposition home or self-care (01) | DRG 871 ==
LOC: ER 15:31 → ERHOLD 20:39 → 2ND 04-23 09:27
PROVIDERS: ADMIT Hospitalist; ATTEND Hospitalist
DX: A41.9 Sepsis, unspecified organism (principal); J18.9 Pneumonia, unspecified organism; I24.8 Other forms of acute ischemic heart disease; N17.9 Acute kidney failure, unspecified; I10 Essential (primary) hypertension; M10.9 Gout, unspecified; R01.1 Cardiac murmur, unspecified; Z88.0 Allergy status to penicillin; Z20.822 Contact with and (suspected) exposure to COVID-19
CPT/HCPCS: 36415; 71045; 80053; 80061; 81015; 82947; 83605; 84439; 84443; 84484; 85025; 85610; 85730; 87040; 87070; 87086; 87088; 87205; 87804; 93005; 93306; 94010; 94640; 96372; 96374; 99285; J0456; J1644; J2930; J7030; J7050; U0002; U0003

== ENCOUNTER 2022-11-22 08:54 | Emergency (ER) | payer OTHER, MEDICARE ==
--- OUTSIDE RECORDS SUMMARY | 2022-11-22 09:25 | XMS REPORT | Continuity of Care Document ---
:1935 Author Organization [facility] t Address [address] [place] [address] [place] [id number] Care Team Providers Name Role Phone Hal-Catherineo_A_AH Attending Clinician Unavailable Hal-Enzoayo_A_AH Admitting Clinician Unavailable Payers Payer Name Policy Type Policy Number Effective Date Expiration Date S carlos manuel [facility] [place] - [id number] 2019 [employer] 00:00:00 (MEDICARE REPLACEMENT/ADVANT AGE - HMO) Problems Condition Condition Condition Status Onset Resolution Last Treating Co mments Source Name Details Category Date Date Treatment Clinician Date Hyperchole Hyperchole Problem Active 2019-0 V illage sterolemia sterolemia 6-24 Fa ayush 00:00: Practic 00 e Gout Gout Problem Active 2020-0 Village 6-24 Family 00:00: Practic 00 e 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 amlodipine amlodipine No 1 Q1D amlodipine [facility] 5 mg tablet 5 mg tablet 5 mg F amily Take 1 Take 1 tablet Practic tablet tablet Take 1 e every day every day tablet by oral by oral every day route. route. by oral route. finasteride finasteride No 1 Q1D finasterid [facility] 5 mg tablet 5 mg tablet e 5 mg Family Take 1 Take 1 tablet Practic tablet tablet Take 1 e every day every day tablet by oral by oral every day route. route. by oral route. lisinopril lisinopril No 1 Q1D lisinopril [facility] 10 mg 10 mg 10 mg Family tablet Take tablet Take tablet Practic 1 tablet 1 tablet Take 1 e every day every day tablet by oral by oral every day route. route. by oral route. rosuvastati rosuvastati No 1 Q1D rosuvastat [facility] n 20 mg n 20 mg in 20 mg Famil y tablet Take tablet Take tablet Practic 1 tablet 1 tablet Take 1 e every day every day tablet by oral by oral every day route. route. by oral route. Vital Signs Vital Name Observation Time Observation Value Comments Source Height 2020-06-21 00:00:00 67 [in_i] [facility] Height 2020-03-12 00:00:00 67 [in_i] [facility] BMI (Body Mass 2020-03-12 00:00:00 31.3 kg/m2 [facility] Index) Practice Body Weight 2020-03-12 00:00:00 200 [lb_av] [facility] Procedures This patient has no known procedures. Encounters Start End Encounter Admission Attending Care Care Encounter Source Date/Time Date/Time Type Type Clinicians Facility Department ID 2020-07-16 2020-07-16 Outpatient [facility] [id number] [facility] 01:19:00 01:19:00 _A_ [id number] Family Practic e 2020-07-16 2020-07-16 Outpatient [facility] [id number] [facility] 01:19:00 01:19:00 _A_AH [id number] Family Practic e 2020-06-28 2020-06-28 Outpatient [facility] [id number] [facility] 06:36:00 06:36:00 _A_AH [id number] Family Practic e 2020-06-21 2020-06-21 [facility] [place] - [id number] V illage 00:00:00 00:00:00 Sharron [facility] Fam agusto nicole TRAFFIC EXPERT: Medical - Practi daniel [email or web address], [place] [address], [place] [address] , Ph. 2020-05-17 2020-05-17 Outpatient Hal-Mbayo [facility] [id number] [facility] 07:47:00 07:47:00 _A_AH [id number] Family Practic e 2020-05-01 2020-05-01 Outpatient Hal-Mbayo [facility] [id number] [facility] 03:33:00 03:33:00 _A_AH [id number] Family Practic e 2020-04-24 2020-04-24 Outpatient Hal-Mbayo [facility] [id number] [facility] 07:10:00 07:10:00 _A_AH [id number] Family Practic e 2020-04-08 2020-04-08 Outpatient Hal-Mbayo [facility] [id number] [facility] 03:38:00 03:38:00 _A_AH [id number] Family Practic e 2020-04-02 2020-04-02 Outpatient Hal-Mbayo [facility] [id number] [facility] 05:24:00 05:24:00 _A_AH [id number] Family Practic e 2020-03-15 2020-03-15 Outpatient Hal-Mbayo [facility] [id number] [facility] 07:13:00 07:13:00 _A_AH [id number] Family Practic e 2020-03-12 2020-03-12 [facility] [place] - [id number] [facility] ill[facility] 00:00:00 00:00:00 Sharron [facility] Fam agusto nicole TRAFFIC EXPERT: Prudence - Pracmarlen sanchez [email or web address], [place] [address], [place] [address] , Ph. 2019-11-08 2019-11-08 Outpatient Hal-Mbayo [facility] [id number] [facility] 07:17:00 07:17:00 _A_ [id number] Family Practic e Results This patient has no known results.
[2022-11-22 10:16] LABS: Absolute Lymphocytes (CBC) 0.8 K/uL (0.7-4.9); Lymphocytes % 10.3 % (15.3-44.8); MCV 91.5 fL (80-100); MPV 9.4 fL (7.6-11.3); RBC Red Blood Cell Count 4.81 M/uL (4.33-5.43)
[2022-11-22 10:32] LABS: SARS-COV-2 RT PCR NEGATIVE (NEGATIVE)
[2022-11-22 10:39] LABS: Potassium 4.3 mmol/L (3.5-5.1)
--- NOTE | 2022-11-22 11:18 | RAD REPORT ---
EXAM DESCRIPTION: Charlie Single View11/22/2022 10:03 am CLINICAL HISTORY: Cough COMPARISON: 2021 FINDINGS: Mild interstitial lung opacities appear chronic. The lungs appear clear of acute infiltrat e. The heart is normal size IMPRESSION: No acute abnormalities displayed
--- NOTE | 2022-11-22 11:48 | EDPHYS ---
Physician Documentation [facility] Name: Rosales Rosales Age: 87 yrs Sex: Male : 1935 Arrival Date: 11/22/2022 Time: 08:58 Bed 19 Private MD: Maciel Ovalle V ED Physician Magnus Valero HPI: 11/22 10:26 This 87 yrs old Male presents to ER via Ambulatory with complaints of Cough. kdr 10:26 Patient states he has had cough and congestion for about a month and a half. He has not kdr been seen or treated for this cough. He continues to have a productive (yellow) cough that is raspy and deep in his chest. Patient also complains of a purulent discharge from his right eye that started a day and a half ago. Denies any pain or injury to the eye.. Onset: The symptoms/episode began/occurred Cough been ongoing for a month and a half. The purulent discharge from his right eye for a day and a half.. Severity of symptoms: At their worst the symptoms were mild in the emergency department the symptoms are unchanged. The patient has not experienced similar symptoms in the past. The patient has not recently seen a physician, He was treated recently for a possible ear infection/sinus infection however he denies being on any antibiotics. Historical: - Allergies: 09:11 PENICILLINS; vg1 - Home Meds: 09:11 allopurinol 100 mg Oral tab 1 tab 2 times per day [Active]; lisinopril 5 mg Oral tab 1 vg1 tab once daily [Active]; 09:11 rosuvastatin oral [Active]; finasteride oral [Active]; vg1 - PMHx: 09:11 Gout; Hypertensive disorder; vg1 - PSHx: 09:11 None; vg1 - Immunization history:: Client reports receiving the 2nd dose of the Covid vaccine. - Social history:: Smoking status: Patient denies any tobacco usage or history of. ROS: 10:26 Constitutional: Negative for fever, chills, and weight loss, ENT: Negative for injury, kdr pain, and discharge, Neck: Negative for injury, pain, and swelling, Cardiovascular: Negative for chest pain, palpitations, and edema, Abdomen/GI: Negative for abdominal pain, nausea, vomiting, diarrhea, and constipation, Back: Negative for injury and pain, : Negative for injury, bleeding, discharge, and swelling, MS/Extremity: Negative for injury and deformity, Skin: Negative for injury, rash, and discoloration, Neuro: Negative for headache, weakness, numbness, tingling, and seizure activity. Psych: Negative for depression, anxiety, suicide ideation, homicidal ideation, and hallucinations, Allergy/Immunology: Negative for hives, rash, and allergies, Endocrine: Negative for neck swelling, polydipsia, polyuria, polyphagia, and marked weight changes, Hematologic/Lymphatic: Negative for swollen nodes, abnormal bleeding, and unusual bruising. 10:26 Eyes: Positive for discharge, itching, matting, Negative for icterus, injury or acute deformity, pain, photophobia, redness, sunken appearance, swelling, vision loss, visual disturbance. 10:26 Respiratory: Positive for cough, with yellow sputum, shortness of breath, at rest. Negative for dyspnea on exertion, hemoptysis, orthopnea, pleurisy. Exam: 10:26 Constitutional: This is a well developed, well nourished patient who is awake, alert, kdr and in no acute distress. Head/Face: Normocephalic, atraumatic. Neck: Trachea midline, no thyromegaly or masses palpated, and no cervical lymphadenopathy. Supple, full range of motion without nuchal rigidity, or vertebral point tenderness. No Meningismus. Chest/axilla: Normal chest wall appearance and motion. Nontender with no deformity. No lesions are appreciated. Cardiovascular: Regular rate and rhythm with a normal S1 and S2. No gallops, murmurs, or rubs. Normal PMI, no JVD. No pulse deficits. Respiratory: Lungs have equal breath sounds bilaterally, clear to auscultation and percussion. No rales, rhonchi or wheezes noted. No increased work of breathing, no retractions or nasal flaring. Abdomen/GI: Soft, non-tender, with normal bowel sounds. No distension or tympany. No guarding or rebound. No evidence of tenderness throughout. Back: No spinal tenderness. No costovertebral tenderness. Full range of motion. Skin: Warm, dry with normal turgor. Normal color with no rashes, no lesions, and no evidence of cellulitis. MS/ Extremity: Pulses equal, no cyanosis. Neurovascular intact. Full, normal range of motion. Neuro: Awake and alert, GCS 15, oriented to person, place, time, and situation. Cranial nerves II-XII grossly intact. Motor strength 5/5 in all extremities. Sensory grossly intact. Cerebellar exam normal. Normal gait. Psych: Awake, alert, with orientation to person, place and time. Behavior, mood, and affect are within normal limits. 10:26 Eyes: Conjunctiva: exudate, in the right eye. 10:26 Respiratory: the patient does not display signs of respiratory distress, Respirations: normal, Breath sounds: rales, rhonchi, that are mild, are scattered. Vital Signs: 09:08 BP 134 / 79; Pulse 90; Resp 17; Temp 98.6(O); Pulse Ox 97% on R/A; Weight 84.82 kg; vg1 Height 5 ft. 7 in. (170.18 cm); Pain 0/10; 11:16 BP 109 / 75; Pulse 79; Resp 17; Pulse Ox 94% on R/A; kr3 12:12 BP 110 / 66; Pulse 78; Resp 17; Pulse Ox 100% ; kr3 09:08 Body Mass Index 29.29 (84.82 kg, 170.18 cm) vg1 MDM: 10:26 Data reviewed: vital signs, nurses notes, lab test result(s), radiologic studies. I kdr considered the following discharge prescriptions or medication management in the emergency department Medications were administered in the Emergency Department. See NOV. 11:47 Patient medically screened. [facility] 11/22 09:46 Order name: XRAY Chest (1 view) 11/22 09:46 Order name: COVID-19/FLU A+B 11/22 09:54 Order name: CBC with Diff kdr 11/22 09:54 Order name: Chem 7 kdr 11/22 10:20 Order name: CBC with Automated Diff; Complete Time: 11:45 EDMS 11/22 10:32 Order name: COVID-19/FLU A+B; Complete Time: 11:45 EDMS 11/22 10:39 Order name: Basic Metabolic Panel; Complete Time: 11:45 EDMS 11/22 11:18 Order name: RAD; Complete Time: 11:45 EDMS Administered Medications: 12:00 Drug: Zithromax (azithromycin) 500 mg Route: PO; kr3 12:14 Follow up: Response: No adverse reaction kr3 Disposition Summary: 11/22/22 11:47 Discharge Ordered Location: Home kdr Problem: an ongoing problem kdr Symptoms: are unchanged kdr Condition: Stable kdr Diagnosis - Other acute conjunctivitis kdr - Other mucopurulent conjunctivitis, right eye kdr - Bronchitis, not specified as acute or chronic kdr Followup: kdr - With: Maciel Ovalle MD - When: 2 - 3 days - Reason: If symptoms return, Further diagnostic work-up, Recheck today's complaints, Continuance of care, Re-evaluation by your physician Discharge Instructions: - Discharge Summary Sheet kdr - Bacterial Conjunctivitis, Adult kdr - Acute Bronchitis, Adult, [id number] kdr Forms: - Medication Reconciliation Form kdr - Thank You Letter kdr - Antibiotic Education kdr Prescriptions: - erythromycin 5 mg/gram (0.5 %) Ophthalmic ointment - apply 1 centimeter by OPHTHALMIC route 3 times per day for 7 days; 1 tube; kdr Refills: 0, Product Selection Permitted - Zithromax Z-Kendell 250 mg Oral Tablet - take 1 tablet by ORAL route once daily for 3 days; 3 tablet; Refills: 0, kdr Product Selection Permitted Signatures: Dispatcher [employer] Magnus Suarez MD MD kdr Alejandra Seymour, RN RN vg1 Ana Alejo RN RN kr3
--- NOTE | 2022-11-22 11:48 | ER ---
Nurse's Notes [facility] Name: Rosales Rosales Age: 87 yrs Sex: Male : 1935 Arrival Date: 11/22/2022 Time: 08:58 Bed 19 Private MD: Maciel Ovalle V Diagnosis: Other acute conjunctivitis;Other mucopurulent conjunctivitis, right eye;Bronchitis, not specified as acute or chronic Presentation: 11/22 09:08 Chief complaint: Patient states: cough x 1 month with SOB, denies CP. Also Right eye vg1 appears to have drainage. Stated " I had pneumonia last year and it feels like the same". Coronavirus screen: Vaccine status: Patient reports receiving the 2nd dose of the covid vaccine. Client denies travel out of the [place] in the last 14 days. Ebola Screen: Patient negative for fever greater than or equal to 101.5 degrees Fahrenheit, and additional compatible Ebola Virus Disease symptoms Patient denies exposure to infectious person. Initial Sepsis Screen: Does the patient meet any 2 criteria? No. Patient's initial sepsis screen is negative. Does the patient have a suspected source of infection? No. Patient's initial sepsis screen is negative. Risk Assessment: Do you want to hurt yourself or someone else? Patient reports no desire to harm self or others. Onset of symptoms was October 2022. 09:08 Method Of Arrival: Ambulatory vg1 09:08 Acuity: YUNIOR 3 vg1 Triage Assessment: 09:11 General: Appears in no apparent distress. uncomfortable, Behavior is calm, cooperative. vg1 Pain: Denies pain. Neuro: Level of Consciousness is awake, alert, obeys commands, Oriented to person, place, time, situation. Respiratory: Reports shortness of breath at rest cough that is productive, Airway is patent Respiratory effort is even, unlabored, Breath sounds are clear bilaterally. 09:11 Cardiovascular: Patient's skin is warm and dry. vg1 09:11 EENT: Eyes Right eye appears to have redness and drainage, yellow in color. vg1 Historical: - Allergies: 09:11 PENICILLINS; vg1 - Home Meds: 09:11 allopurinol 100 mg Oral tab 1 tab 2 times per day [Active]; lisinopril 5 mg Oral tab 1 vg1 tab once daily [Active]; 09:11 rosuvastatin oral [Active]; finasteride oral [Active]; vg1 - PMHx: 09:11 Gout; Hypertensive disorder; vg1 - PSHx: 09:11 None; vg1 - Immunization history:: Client reports receiving the 2nd dose of the Covid vaccine. - Social history:: Smoking status: Patient denies any tobacco usage or history of. Screenin:13 [facility] ED Fall Risk Assessment (Adult) History of falling in the last 3 months, kr3 including since admission No falls in past 3 months (0 pts) Confusion or Disorientation No (0 pts) Intoxicated or Sedated No (0 pts) Impaired Gait No (0 pts) Mobility Assist Device Used No (0 pt) Altered Elimination No (0 pt) Score/Fall Risk Level 0 - 2 = Low Risk Oriented to surroundings, Maintained a safe environment, Educated pt \\T\\ family on fall prevention, incl call for assistance when getting out of bed, Assessed \\T\\ reinforced patient's understanding of fall precautions, Hourly rounding (assess needs \\T\\ fall precautionary measures) done. Abuse screen: Denies threats or abuse. Nutritional screening: No deficits noted. Tuberculosis screening: No symptoms or risk factors identified. Assessment: 09:31 General: Appears in no apparent distress. comfortable, Behavior is calm, cooperative, kr3 appropriate for age. Neuro: Level of Consciousness is awake, alert, obeys commands, Oriented to person, place, time, situation. Cardiovascular: Patient's skin is warm and dry. Respiratory: Airway is patent Respiratory effort is even, unlabored, Respiratory pattern is regular, symmetrical. GI: No signs and/or symptoms were reported involving the gastrointestinal system. : No signs and/or symptoms were reported regarding the genitourinary system. EENT: Eyes with exudate noted from outer aspect of conjuctiva of right eye, iris of right eye, inner aspect of conjuctiva of right eye and right inner canthus. 09:33 Derm: No signs and/or symptoms reported regarding the dermatologic system. kr3 Musculoskeletal: No signs and/or symptoms reported regarding the musculoskeletal system. 10:30 Reassessment: Patient appears in no apparent distress at this time. Patient and/or kr3 family updated on plan of care and expected duration. Pain level reassessed. Patient is alert, oriented x 3, equal unlabored respirations, skin warm/dry/pink. 11:16 Reassessment: Patient appears in no apparent distress at this time. Patient and/or kr3 family updated on plan of care and expected duration. Pain level reassessed. Patient is alert, oriented x 3, equal unlabored respirations, skin warm/dry/pink. 12:12 Reassessment: Patient appears in no apparent distress at this time. Patient and/or kr3 family updated on plan of care and expected duration. Pain level reassessed. Patient is alert, oriented x 3, equal unlabored respirations, skin warm/dry/pink. Vital Signs: 09:08 BP 134 / 79; Pulse 90; Resp 17; Temp 98.6(O); Pulse Ox 97% on R/A; Weight 84.82 kg; vg1 Height 5 ft. 7 in. (170.18 cm); Pain 0/10; 11:16 BP 109 / 75; Pulse 79; Resp 17; Pulse Ox 94% on R/A; kr3 12:12 BP 110 / 66; Pulse 78; Resp 17; Pulse Ox 100% ; kr3 09:08 Body Mass Index 29.29 (84.82 kg, 170.18 cm) vg1 ED Course: 08:58 Patient arrived in ED. am2 08:58 Maciel Ovalle MD is Private Physician. am2 09:10 Magnus Valero MD is Attending Physician. kdr 09:11 Triage completed. vg1 09:11 Arm band placed on. vg1 09:15 Bed in low position. Call light in reach. Side rails up X 1. kr3 09:19 Ana Alejo, RN is Primary Nurse. kr3 09:55 COVID-19/FLU A+B Sent. kr3 10:08 Initial lab(s) drawn, by dc, sent to lab. Inserted saline lock: 22 gauge in left tm3 antecubital area, using aseptic technique. 10:22 Chem 7 Sent. kr3 10:22 CBC with Diff Sent. kr3 11:46 Maciel Ovalle MD is Referral Physician. kdr 12:13 No provider procedures requiring assistance completed. IV discontinued, intact, kr3 bleeding controlled, No redness/swelling at site. Pressure dressing applied. Administered Medications: 12:00 Drug: Zithromax (azithromycin) 500 mg Route: PO; kr3 12:14 Follow up: Response: No adverse reaction kr3 Medication: 12:14 VIS not applicable for this client. kr3 Outcome: 11:47 Discharge ordered by . kdr 12:13 Discharged to home ambulatory. kr3 12:13 Condition: stable 12:13 Discharge instructions given to patient, Instructed on discharge instructions, follow up and referral plans. medication usage, Demonstrated understanding of instructions, follow-up care, medications, Prescriptions given X 2. 12:14 Patient left the ED. kr3 Signatures: Errol Burt tm3 Magnus Valero MD MD kdr Moreno, Amanda am2 Alejandra Seymour, RN RN vg1 Ana Alejo, RN RN kr3
[2022-11-22] MEDS ORDERED: AZITHROMYCIN 250 MG TAB ONE (12:07)
[2022-11-22 12:37] VITALS: TEMP 98.6
[2022-11-22 12:39] VITALS: BP 110/66; O2SAT 100
== END 2022-11-22 12:14 | disposition home or self-care (01) ==
LOC: ER 08:54
DX: J40 Bronchitis, not specified as acute or chronic (principal); H10.30 Unspecified acute conjunctivitis, unspecified eye; H10.021 Other mucopurulent conjunctivitis, right eye; I10 Essential (primary) hypertension; Z20.822 Contact with and (suspected) exposure to COVID-19; Z88.0 Allergy status to penicillin
CPT/HCPCS: 85025; 80048; 36415; 0240U; 71045; 99284